=== PATIENT | male | born 1985 | race Caucasian/White ===

== ENCOUNTER → 2019-10-08 | Outpatient (CLI) | payer BC ==
--- NOTE | 2019-10-08 15:28 | US ---
EXAMINATION TYPE: US scrotum with doppler. Grayscale and color Doppler Duplex imaging performed of t he scrotum. DATE OF EXAM: 10/08/2019 COMPARISON: NONE CLINICAL HISTORY: Left testicular pain N50.812. Pt states left testicle pain and swelling/ pt states h/o left inguinal hernia repair many years ago EXAM MEASUREMENTS: TESTICLES: Right Testicle: 4.8 x 2.0 x 3.1 cm Left Testicle: 4.3 x 2.3 x 3.2 cm EPIDIDYMIS HEAD: Right Epididymis: 1.2 cm Left Epididymis: 1.3 cm Doppler performed to assess for testicular vascularity; good bilateral color flow and waveforms are s een. There is no evidence of testicular torsion. Presence of hydroceles: Small amount of fluid superior to left testicle Presence of varicoceles: Mild lateral to left testicle No evidence of hernia within left scrotum or left inguinal canal on valsalva maneuvers IMPRESSION: 1. No evidence for hernia. 2. Small amount of fluid superior to the left testicle.
== END | disposition home or self-care (01) ==
LOC: RADUSWWP 14:45
PROVIDERS: ATTEND Internal Medicine
DX: R93.812 Abnormal radiologic findings on diagnostic imaging of left testicle (principal)
CPT/HCPCS: 76870; 93975